=== PATIENT | male | born 1970 | race Caucasian/White ===

== ENCOUNTER 2017-09-28 18:57 | Emergency (ER) | payer MEDICAID ==
[2017-09-28 19:58] LABS: ADD MAN DIFF? NO
[2017-09-28] MEDS: ASPIRIN 81 MG TAB PO (20:01)
[2017-09-28] MEDS: hydrALAzine 20 MG INJ IV (20:01)
[2017-09-28 20:13] LABS: BASOPHILS % 0.3 % (0.0-2.0); EOSINOPHILS # 0.1 10^3/ul (0.0-0.5); EOSINOPHILS % 1.4 % (0.0-7.0); HEMATOCRIT 43.9 % (42.0-52.0); HEMOGLOBIN 14.7 g/dl (14.0-18.0); LYMPHOCYTES # 2.9 10^3/ul (0.8-2.9); MEAN CORPUSCULAR HEMOGLOBIN 27.4 pg (29.0-33.0); MEAN CORPUSCULAR HGB CONC 33.5 g/dl (32.0-37.0); MEAN CORPUSCULAR VOLUME 81.9 fl (82.0-101.0); MEAN PLATELET VOLUME 12.6 fl (7.4-10.4); MONOCYTE # 0.4 10^3/ul (0.3-0.9); MONOCYTES % 5.4 % (0.0-11.0); NEUTROPHIL # 4.2 10^3/ul (1.6-7.5); NEUTROPHILS % 54.6 % (39.0-77.0); PLATELET COUNT 158 10^3/UL (140-415); RED BLOOD COUNT 5.36 10^6/ul (4.70-6.10); RED CELL DISTRIBUTION WIDTH 13.2 % (11.5-14.5)
[2017-09-28 20:13] LABS: WHITE BLOOD COUNT 7.6 10^3/ul (4.8-10.8)
[2017-09-28 20:31] LABS: ANION GAP 11 (8-16); BLOOD UREA NITROGEN 13 mg/dl (7-20); CARBON DIOXIDE 28 mmol/L (21-31); CHLORIDE 106 mmol/L (97-110); CREATININE 0.83 mg/dl (0.61-1.24); GLUCOSE 101 mg/dl (70-220); POTASSIUM 3.6 mmol/L (3.5-5.1); SODIUM 141 mmol/L (135-144)
[2017-09-28 20:41] LABS: TROPONIN-I < 0.010 ng/ml (0.000-0.120)
[2017-09-28] MEDS: KETOROLAC 15 MG INJ IV (22:01)
[2017-09-28 23:26] LABS: TROPONIN-I 0.014 ng/ml (0.000-0.120)
== END 2017-09-29 00:54 | disposition home or self-care (01) ==
LOC: E/R 09-29 00:54
DX: R07.89 Other chest pain (principal); I10 Essential (primary) hypertension
CPT/HCPCS: 36415; 71045; 80048; 84484; 85025; 93005; 96374; 96375; 99285-25

== ENCOUNTER 2017-12-23 21:09 | Emergency (ER) | payer SELFPAY, MEDICAID ==
[2017-12-23] MEDS: ONDANSETRON (ODT) 4 MG TAB ODT (23:02)
[2017-12-23] MEDS: ACETAMINOPHEN 325 MG TAB PO (23:03)
[2017-12-23 23:08] LABS: ADD UMIC NO; UR ASCORBIC ACID NEGATIVE (NEGATIVE); UR BILIRUBIN (Dip) NEGATIVE (NEGATIVE); UR BLOOD (Dip) NEGATIVE (NEGATIVE); UR CLARITY SLIGHTLY CLOUDY (CLEAR); UR COLOR YELLOW (YELLOW); UR GLUCOSE (Dip) 1+ mg/dL (NEGATIVE); UR KETONES (Dip) NEGATIVE (NEGATIVE); UR LEUKOCYTE ESTERASE (Dip) NEGATIVE Leu/ul (NEGATIVE); UR MUCUS FEW /HPF (NONE SEEN); UR NITRITE (Dip) NEGATIVE (NEGATIVE); UR RBC 1 /HPF (0-5); UR TOTAL PROTEIN (Dip) NEGATIVE (NEGATIVE); UR UROBILINOGEN (Dip) NEGATIVE (NEGATIVE); UR WBC 2 /HPF (0-5)
== END 2017-12-24 01:32 | disposition home or self-care (01) ==
LOC: FTE 21:09
DX: R51 Headache (principal); I10 Essential (primary) hypertension
CPT/HCPCS: 70450; 81001; 81003; 82962; 93005; 99285-25

== ENCOUNTER 2018-06-24 19:15 | Observation (INO) | payer SELFPAY ==
[2018-06-24] MEDS: NICARDipine HCL 30 MG CAPSULE PO (22:30)
[2018-06-24 22:51] LABS: ADD MAN DIFF? NO
[2018-06-24] MEDS: ASPIRIN 325 MG TAB PO (22:52)
[2018-06-24] MEDS: NITROGLYCERIN 2% 1 GM OINT PKT TD (22:52)
[2018-06-24 22:53] LABS: WHITE BLOOD COUNT 8.1 10^3/ul (4.8-10.8)
[2018-06-24 22:53] LABS: BASOPHILS % 0.4 % (0.0-2.0); EOSINOPHILS # 0.2 10^3/ul (0.0-0.5); EOSINOPHILS % 2.1 % (0.0-7.0); HEMATOCRIT 46.1 % (42.0-52.0); HEMOGLOBIN 15.3 g/dl (14.0-18.0); LYMPHOCYTES # 3.1 10^3/ul (0.8-2.9); MEAN CORPUSCULAR HEMOGLOBIN 27.2 pg (29.0-33.0); MEAN CORPUSCULAR HGB CONC 33.2 g/dl (32.0-37.0); MEAN CORPUSCULAR VOLUME 81.9 fl (82.0-101.0); MEAN PLATELET VOLUME 12.3 fl (7.4-10.4); MONOCYTE # 0.5 10^3/ul (0.3-0.9); MONOCYTES % 6.5 % (0.0-11.0); NEUTROPHIL # 4.2 10^3/ul (1.6-7.5); NEUTROPHILS % 52.6 % (39.0-77.0); PLATELET COUNT 159 10^3/UL (140-415); RED BLOOD COUNT 5.63 10^6/ul (4.70-6.10); RED CELL DISTRIBUTION WIDTH 13.5 % (11.5-14.5)
[2018-06-24 23:10] LABS: ALANINE AMINOTRANSFERASE 34 IU/L (13-69); ALBUMIN 4.4 g/dl (3.3-4.9); ALBUMIN/GLOBULIN RATIO 1.25; ALKALINE PHOSPHATASE 91 IU/L (42-121); ANION GAP 8 (5-13); ASPARTATE AMINO TRANSFERASE 26 IU/L (15-46); BILIRUBIN,INDIRECT 0.8 mg/dl (0-1.1); BILIRUBIN,TOTAL 0.8 mg/dl (0.2-1.3); BLOOD UREA NITROGEN 14 mg/dl (7-20); CARBON DIOXIDE 29 mmol/L (21-31); CHLORIDE 104 mmol/L (97-110); CREATININE 0.95 mg/dl (0.61-1.24); Estimated GFR > 60 mL/min (>60); GLUCOSE 125 mg/dl (70-220); SODIUM 141 mmol/L (135-144); TOTAL PROTEIN 7.9 g/dl (6.1-8.1)
[2018-06-24 23:22] LABS: B-TYPE NATRIURETIC PEPTIDE 36 PG/ML (0-125); TROPONIN-I < 0.012 ng/ml (0.000-0.120)
[2018-06-25] MEDS ORDERED: morphine 2 MG INJ IV (00:30)
[2018-06-25] MEDS ORDERED: ONDANSETRON 4 MG INJ IV ×2 (00:30)
[2018-06-25] MEDS ORDERED: DOCUSATE SODIUM 100 MG CAP PO (00:30)
[2018-06-25] MEDS ORDERED: ACETAMINOPHEN 325 MG TAB PO (00:30)
[2018-06-25] MEDS ORDERED: BISACODYL (EC) 5 MG TAB PO (00:30)
[2018-06-25] MEDS ORDERED: NITROGLYCERIN (SL) 0.4 MG TAB SL (00:30)
[2018-06-25] MEDS ORDERED: NACL 0.9% 3 ML SYG IV (00:30)
[2018-06-25] MEDS: ACETAMINOPHEN 325 MG TAB PO ×3 (01:46→17:44)
[2018-06-25] MEDS: SOD CHLORIDE 0.9% 1,000 ML IV (02:33)
[2018-06-25] MEDS: ENALAPRILAT 1.25 MG INJ IV (02:40)
[2018-06-25] MEDS ORDERED: traZODone 100 MG TAB (04:05)
[2018-06-25] MEDS: traZODone 50 MG TAB PO (05:34)
[2018-06-25 06:00] LABS: ADD MAN DIFF? NO
[2018-06-25 06:05] LABS: BASOPHILS % 0.4 % (0.0-2.0); EOSINOPHILS # 0.1 10^3/ul (0.0-0.5); EOSINOPHILS % 1.9 % (0.0-7.0); HEMATOCRIT 44.8 % (42.0-52.0); HEMOGLOBIN 14.9 g/dl (14.0-18.0); LYMPHOCYTES % 41.9 % (15.0-51.0); MEAN CORPUSCULAR HEMOGLOBIN 27.2 pg (29.0-33.0); MEAN CORPUSCULAR HGB CONC 33.3 g/dl (32.0-37.0); MEAN CORPUSCULAR VOLUME 81.9 fl (82.0-101.0); MEAN PLATELET VOLUME 12.8 fl (7.4-10.4); MONOCYTE # 0.5 10^3/ul (0.3-0.9); MONOCYTES % 7.3 % (0.0-11.0); NEUTROPHIL # 3.5 10^3/ul (1.6-7.5); NEUTROPHILS % 48.4 % (39.0-77.0); PLATELET COUNT 165 10^3/UL (140-415); RED BLOOD COUNT 5.47 10^6/ul (4.70-6.10); RED CELL DISTRIBUTION WIDTH 13.5 % (11.5-14.5)
[2018-06-25 06:05] LABS: WHITE BLOOD COUNT 7.2 10^3/ul (4.8-10.8)
[2018-06-25 06:34] LABS: ALANINE AMINOTRANSFERASE 32 IU/L (13-69); ALBUMIN/GLOBULIN RATIO 1.29; ALKALINE PHOSPHATASE 72 IU/L (42-121); ANION GAP 5 (5-13); ASPARTATE AMINO TRANSFERASE 24 IU/L (15-46); BILIRUBIN,INDIRECT 0.9 mg/dl (0-1.1); BILIRUBIN,TOTAL 0.9 mg/dl (0.2-1.3); BLOOD UREA NITROGEN 15 mg/dl (7-20); CALCIUM 8.9 mg/dl (8.4-10.2); CARBON DIOXIDE 29 mmol/L (21-31); CHLORIDE 106 mmol/L (97-110); CHOLESTEROL 234 mg/dl (100-200); CREATININE 1.01 mg/dl (0.61-1.24); Estimated GFR > 60 mL/min (>60); GLUCOSE 99 mg/dl (70-220); HDL CHOLESTEROL 39 mg/dl (27-67); LDL CHOLESTEROL,CALCULATED 155 mg/dl; MAGNESIUM 2.2 mg/dl (1.7-2.5); POTASSIUM 3.7 mmol/L (3.5-5.1); SODIUM 140 mmol/L (135-144); TOTAL PROTEIN 7.1 g/dl (6.1-8.1); TRIGLYCERIDES 200 mg/dl (0-149)
[2018-06-25 07:39] LABS: HEMOGLOBIN A1C 5.9 % (0-5.9)
[2018-06-25] MEDS: LOSARTAN 25 MG TAB PO (12:07)
[2018-06-25] MEDS: AMLODIPINE 10 MG TAB PO (12:07)
[2018-06-25 12:47] LABS: TROPONIN-I < 0.012 ng/ml (0.000-0.120)
[2018-06-25] MEDS: SOD CHLORIDE 0.9% 100 ML (14:55)
[2018-06-25] MEDS: IOHEXOL 350MG/ML 50 ML BTL (14:55)
[2018-06-25] MEDS: IOHEXOL 100 ML (14:55)
[2018-06-25] MEDS: ATORVASTATIN 40 MG TAB PO (21:18)
[2018-06-25 23:30] LABS: CREATINE KINASE 94 IU/L (23-200)
[2018-06-25 23:42] LABS: CK INDEX 0.9; TROPONIN-I < 0.012 ng/ml (0.000-0.120)
[2018-06-26] MEDS: traZODone 50 MG TAB PO (00:42)
[2018-06-26 06:08] LABS: ADD MAN DIFF? NO
[2018-06-26 06:15] LABS: BASOPHILS % 0.4 % (0.0-2.0); EOSINOPHILS # 0.2 10^3/ul (0.0-0.5); EOSINOPHILS % 3.2 % (0.0-7.0); LYMPHOCYTES # 3.3 10^3/ul (0.8-2.9); LYMPHOCYTES % 43.6 % (15.0-51.0); MEAN CORPUSCULAR HEMOGLOBIN 27.3 pg (29.0-33.0); MEAN CORPUSCULAR HGB CONC 33.3 g/dl (32.0-37.0); MEAN CORPUSCULAR VOLUME 81.8 fl (82.0-101.0); MONOCYTE # 0.5 10^3/ul (0.3-0.9); MONOCYTES % 6.3 % (0.0-11.0); NEUTROPHIL # 3.5 10^3/ul (1.6-7.5); NEUTROPHILS % 46.2 % (39.0-77.0); PLATELET COUNT 171 10^3/UL (140-415); RED CELL DISTRIBUTION WIDTH 13.4 % (11.5-14.5)
[2018-06-26 06:15] LABS: WHITE BLOOD COUNT 7.5 10^3/ul (4.8-10.8)
[2018-06-26 06:28] LABS: ALANINE AMINOTRANSFERASE 31 IU/L (13-69); ALBUMIN 3.9 g/dl (3.3-4.9); ALBUMIN/GLOBULIN RATIO 1.25; ALKALINE PHOSPHATASE 76 IU/L (42-121); ANION GAP 9 (5-13); ASPARTATE AMINO TRANSFERASE 22 IU/L (15-46); BILIRUBIN,INDIRECT 1.1 mg/dl (0-1.1); BILIRUBIN,TOTAL 1.1 mg/dl (0.2-1.3); BLOOD UREA NITROGEN 13 mg/dl (7-20); CALCIUM 9.1 mg/dl (8.4-10.2); CARBON DIOXIDE 26 mmol/L (21-31); CHLORIDE 106 mmol/L (97-110); CREATININE 0.89 mg/dl (0.61-1.24); Estimated GFR > 60 mL/min (>60); GLUCOSE 103 mg/dl (70-220); POTASSIUM 4.1 mmol/L (3.5-5.1); SODIUM 141 mmol/L (135-144)
[2018-06-26 06:39] LABS: CREATINE KINASE 87 IU/L (23-200)
[2018-06-26 06:40] LABS: CK INDEX 0.8; CK-MB 0.71 ng/ml (0.0-2.4); TROPONIN-I 0.023 ng/ml (0.000-0.120)
[2018-06-26] MEDS: AMLODIPINE 10 MG TAB PO (08:01)
[2018-06-26] MEDS: LOSARTAN 25 MG TAB PO ×2 (08:01→08:53)
[2018-06-26] MEDS: ASPIRIN 81 MG TAB PO (08:52)
[2018-06-26] MEDS ORDERED: LOSARTAN 50 MG TAB PO (09:00)
[2018-06-26] MEDS: ENALAPRILAT 1.25 MG INJ IV (11:31)
[2018-06-26] MEDS: hydrALAzine 20 MG INJ IV (12:46)
[2018-06-26] MEDS: ACETAMINOPHEN 325 MG TAB PO (15:31)
[2018-06-26] MEDS ORDERED: ENALAPRILAT 1.25 MG INJ IV (16:30)
[2018-06-27] MEDS ORDERED: LOSARTAN 50 MG TAB PO (09:00)
== END 2018-06-26 17:05 | disposition home or self-care (01) ==
LOC: 6WM 06-25 00:23 → E/R 19:15
DX: R07.9 Chest pain, unspecified (principal); I25.10 Atherosclerotic heart disease of native coronary artery without angina pectoris; I16.0 Hypertensive urgency; E78.5 Hyperlipidemia, unspecified; I10 Essential (primary) hypertension; E66.9 Obesity, unspecified; Z68.35 Body mass index [BMI] 35.0-35.9, adult; F41.9 Anxiety disorder, unspecified; F43.9 Reaction to severe stress, unspecified
CPT/HCPCS: 36415; 71045; 75571-59; 75574; 80053; 80061; 82306; 82550; 82553; 83036; 83735; 83880; 84443; 84484; 85025; 93005; 93306; 99285-25; G0378